=== PATIENT | female | born 1950 | race Caucasian/White ===

== ENCOUNTER 2023-06-03 05:42 | Day surgery (SDC) | payer MEDICARE, OTHER, SELFPAY ==
[2023-06-03] VITALS (7 sets, daily range): BP systolic 79–140; BP diastolic 40–80; PULSE 60–92; RESP 16–18; TEMP 36.5–36.9; O2SAT 94–96; BMI 28.2
[2023-06-03] MEDS: Lactated Ringers 1,000 ML 15 ML IV (06:20)
[2023-06-03 06:33] LABS: Hematocrit 39.3 % (37-47); Hemoglobin 12.5 g/dL (12.0-15.0); Mean Corp Hgb Conc 31.8 g/dL (32-36); Mean Corpuscular Hgb 31.2 pg (27.0-32.0); Mean Platelet Vol. 9.4 fl (6.2-12.0); Platelet Count 187 K/mm3 (150-450); RBC Distribution Width CV 11.8 % (11.6-14.6); RBC Distribution Width SD 42.5 fl (35.1-43.9); Red Blood Count 4.01 M/mm3 (4.2-5.4); White Blood Count 6.3 K/mm3 (4.4-11.0)
[2023-06-03] MEDS: Lidocaine 1% (20 ml mdv) 20 ML Vial (07:49)
--- NOTE | 2023-06-03 07:59 | DCINST_ITS ---
Discharge Instructions Diet Discharge Diet: No restrictions Activity Discharge Activity: May Not Drive (for 24 hours after surgery) and May Not Shower (for 24 hours after surgery) May resume sexual activity in: 1-2 weeks (nothing in vagina and no soaking in water for 1 week) Weight Bearing Status: Weight bearing as tolerated Lifting Restrictions: none Dressing / Incision Call your doctor if you observe: Fever of 101 or Higher, Coldness, Increased Pain, Numbness or Tingling, Change in Color, Inability to urinate, Inability to have a bowel movement, Using more than 1 pad per hour, Shortness of breath, Dizziness, Fainting spells, Swelling in the ankles, Chest pain, Increased palpitations (irregular heartbeat), Calf discomfort and Uncontrolled pain Follow Up Care When: I will refer you to Dr. Marianna Mayfield with the [facility] for further care Test Results: Test results from this visit will be discussed in further detail at your follow- up appointment, if applicable. Discharge Plan Admission Primary Reason for Your Visit: surgery Attending Provider: Connie Arriola Primary Care Provider: Yash Bahena Instructions Patient Instructions: Dilation and Curettage Discharge Orders/Prescriptions Prescriptions: Continued pantoprazole 20 mg tablet,delayed release (DR/EC) 20 mg PO .QOD Patient Comments: TAKE 1 TABLET BY MOUTH EVERY DAY lisinopril 20 mg tablet 20 mg PO DAILY Patient Comments: TAKE 1 TABLET BY MOUTH EVERY DAY atorvastatin 20 mg tablet 20 mg PO QHS Patient Comments: TAKE 1 TABLET BY MOUTH EVERY DAY Referrals / Follow Up: Yash Bahena MD [Primary Care Provider] - Disposition Disposition (needs filled in before D/C Order can be placed): Home, Self Care
--- NOTE | 2023-06-03 08:00 | PCM.OPRPT ---
Problems Associated Problem List Diagnoses (1) Thickened endometrium: Report of Operation Date of Procedure: 06/03/23 Pre-Operative Diagnosis: Thickened endometrium Post-Operative Diagnosis: Thickened Surgery/Procedure Performed:: Exam under anesthesia Attempted cervical dilation Description of Surgical Findings:: Cervical stenosis noted. Uterus anteverted, small, and mobile. No adnexal masses palpated. Surgeon: Connie Arriola naphthalene operator: None Type of Anesthesia: MAC Special Medications: None Specimen's removed: None Drains: None Estimated Blood Loss (mL): < 50 Fluids Replaced: 800 mL Description of Procedure: The patient was taken to the operating room where MAC anesthesia was found to be adequate. She was prepped and draped in the dorsal lithotomy position using yellow fin stirrups. A weighted speculum was placed in the vagina to expose the cervix. The anterior lip of the cervix was grasped with a single-tooth tenaculum. 1% lidocaine was injected circumferentially around the cervix. Significant cervical stenosis was noted after being pre medicated with Cytotec. The external cervical os was able to be dilated, however the internal cervical os was unable to be dilated after several attempts with both Garcia and Hegar dilators. All instruments were removed from the vagina. A bimanual exam was performed noting a normal sized anteverted uterus that was freely mobile, and no adnexal masses noted. A vaginal sweep was performed. Bleeding was hemostatic. Instrument and sponge counts were correct. Patient was taken to recovery in stable condition. Grafts/Implants Used: None Procedure Start Time: 07:49 Procedure Stop Time: 07:56 Complications None Admit VTE Documentation VTE Present on Admission: No VTE Mechan Device Prophylaxis: SCD's
== END 2023-06-03 09:01 | disposition home or self-care (01) ==
LOC: SDC 05:46 → AC 05:46
PROVIDERS: PCP Family Medicine; Referring Provider Obstetrics & Gynecology; Visit Provider Obstetrics & Gynecology
PROC: 0UB98ZZ Excision of Uterus, Via Natural or Artificial Opening Endoscopic (ICD-10-PCS; CPT 58558; principal; 2023-06-03 07:15)
DX: R93.89 Abnormal findings on diagnostic imaging of other specified body structures (principal); N88.2 Stricture and stenosis of cervix uteri; N95.0 Postmenopausal bleeding; I10 Essential (primary) hypertension; E78.5 Hyperlipidemia, unspecified; K21.9 Gastro-esophageal reflux disease without esophagitis; Z79.899 Other long term (current) drug therapy; Z53.8 Procedure and treatment not carried out for other reasons
CPT/HCPCS: 58558; 00952; 85027; 86850; 86900; 86901; J7120; J2405